=== PATIENT | female | born 1960 | race Caucasian/White ===

== ENCOUNTER 2016-09-23 00:56 | Observation (INO) | payer MEDICARE, MEDICAID ==
[2016-09-23] VITALS (11 sets, daily range): BP systolic 105–144; BP diastolic 33–72; PULSE 74–88; TEMP 97.6–97.9
[~2016-09-23] VITALS: Ht 157.5 cm; Wt 94.8 kg
[~2016-09-23 00:56] MED LIST: AMBIEN 10MG10 MG PO; AMITRIPTYLINE H10 M1 PO; AMOXICILLIN 8751 TAB PO; ATIVAN 0.50.5 MG/TAB PO; CYMBALTA 60MG60 MG PO; EFFEXOR-XR150 MG PO; ESTRACE2 MG PO; HYZAAR 25 MG-101 TAB PO; LEVOTHYROXINE0.05 M1 PO; LORTAB 5/500 501 TAB PO; LYRICA100 MG PO; MULTI VITAMINS1 TAB PO; NEURONTIN600 MG/TAB PO; NEXIUM40 MG PO; NORCO 325 MG-51 TAB PO; PROTONIX40 MG/Pack PO; SYNTHROID0.075 MG/T PO; TRAMADOL50 MG PO; VALIUM 5MG T5 MG/TAB PO
[2016-09-23] MEDS ORDERED: LYRICA 150MG C150 MG PO (01:32)
[2016-09-23] MEDS ORDERED: NUCYNTA50 MG PO (01:32)
[2016-09-23] MEDS ORDERED: CYMBALTA 30MG30 MG PO (01:33)
[2016-09-23] MEDS ORDERED: CYMBALTA 60MG60 MG PO (01:33)
[2016-09-23] MEDS ORDERED: PROTONIX 40MG T40 MG PO (01:34)
[2016-09-23] MEDS ORDERED: FLEXERIL 1010 MG/TAB PO (01:34)
[2016-09-23 01:40] LABS: BASO # 0.1 (0.0-0.2); BASO % 0.4 % (0.0-2.0); EOS # 0.2 (0.0-0.7); EOS % 1.2 % (0-4.0); GRAN # 9.4 (1.4-6.5); GRAN % 69.3 % (42.2-75.2); HEMOGLOBIN 12.2 g/dl (12.5-16.0); LYMPH % 21.8 % (20.0-51.0); MEAN CELL VOLUME 85 fl (80.0-100.0); MEAN CORPUSCULAR HEMOGLOBIN 28 pg (27.0-31.0); MEAN CORPUSCULAR HGB CONC 33 g/dl (33.0-37.0); MEAN PLATELET VOLUME 10.6 fl (7.4-10.4); MONO # 0.9 (0.1-0.6); MONO % 6.9 % (1.7-9.3); PLATELET COUNT 295 K/mm3 (130-400); RED BLOOD COUNT 4.32 M/mm3 (4.10-5.30); REDCELL DISTRIBUTION WIDTH-CV 14.1 % (11.5-14.5); WHITE BLOOD COUNT 13.6 K/mm3 (4.8-10.8)
[2016-09-23 01:59] LABS: HEMATOCRIT 36.5 % (37.0-47.0)
[2016-09-23 02:04] LABS: PH 8 (5-8); SQUAMOUS EPITHELIAL 0-2 /hpf; URINE APPEARANCE Hazy; URINE BACTERIA None Seen /hpf; URINE BILIRUBIN Negative (NEGATIVE); URINE BLOOD Negative (NEGATIVE); URINE COLOR Yellow; URINE GLUCOSE Negative (NEGATIVE); URINE KETONE Negative (NEGATIVE); URINE RBC 0-2 /hpf
[2016-09-23 02:22] LABS: ADJUSTED CALCIUM 9.5 mg/dL (8.4-10.2); ALBUMIN 3.6 gm/dL (3.5-5.0); BILIRUBIN,TOTAL 0.7 mg/dL (0.0-1.0); C-REACTIVE PROTEIN 3.4 mg/dL (0.0-0.9); CALCIUM 9.2 mg/dL (8.4-10.2); CREATININE, serum 0.7 mg/dL (0.52-1.25); POTASSIUM 4.2 mmol/L (3.4-5.0); TOTAL PROTEIN 6.6 gm/dL (6.4-8.2)
[2016-09-23] MEDS ORDERED: BIOTIN10000 MC1 PO (04:10)
[2016-09-24 01:37] VITALS: BP 117/62; PULSE 82; TEMP 98.2
[2016-09-24 06:26] VITALS: BP 130/67; PULSE 92; TEMP 98.3
[2016-09-24] MEDS ORDERED: NORCO 325 MG-7.1 TAB PO (07:15)
== END 2016-09-24 11:20 | disposition home or self-care (01) ==
LOC: COL.ER 00:56 → SURG 03:12 → SDCO 03:12 → SURG 09:00
PROVIDERS: Emergency Medicine
DX: K80.10 Calculus of gallbladder with chronic cholecystitis without obstruction (principal); I10 Essential (primary) hypertension; K58.9 Irritable bowel syndrome, unspecified; F31.9 Bipolar disorder, unspecified; F41.9 Anxiety disorder, unspecified; K27.9 Peptic ulcer, site unspecified, unspecified as acute or chronic, without hemorrhage or perforation; K21.9 Gastro-esophageal reflux disease without esophagitis; E66.9 Obesity, unspecified; Z98.84 Bariatric surgery status; M79.7 Fibromyalgia; E03.9 Hypothyroidism, unspecified; G62.9 Polyneuropathy, unspecified
CPT/HCPCS: G0378; J0690; J1100; J1170; J1885; J1956; J2405; J2704; J2710; J2765; J3010; J7030; J7120; Q9967

== ENCOUNTER 2016-09-28 10:27 | Inpatient (IN) | payer MEDICARE, MEDICAID ==
[~2016-09-28] VITALS: Ht 157.5 cm; Wt 93.7 kg
[~2016-09-28 10:27] MED LIST changes: +BIOTIN10000 MC1 PO; +CYMBALTA 30MG30 MG PO; +FLEXERIL 1010 MG/TAB PO; +LYRICA 150MG C150 MG PO; +NORCO 325 MG-7.1 TAB PO; +NUCYNTA50 MG PO; +PROTONIX 40MG T40 MG PO
[2016-09-28 11:04] LABS: BASO # 0.1 (0.0-0.2); BASO % 0.5 % (0.0-2.0); EOS # 0.1 (0.0-0.7); EOS % 1.4 % (0-4.0); GRAN # 7.3 (1.4-6.5); GRAN % 72.1 % (42.2-75.2); HEMATOCRIT 41.3 % (37.0-47.0); HEMOGLOBIN 14.1 g/dl (12.5-16.0); LYMPH # 1.9 (1.2-3.4); LYMPH % 18.4 % (20.0-51.0); MEAN CELL VOLUME 83 fl (80.0-100.0); MEAN CORPUSCULAR HEMOGLOBIN 28 pg (27.0-31.0); MEAN CORPUSCULAR HGB CONC 34 g/dl (33.0-37.0); MEAN PLATELET VOLUME 10.6 fl (7.4-10.4); MONO # 0.7 (0.1-0.6); MONO % 7.1 % (1.7-9.3); PLATELET COUNT 364 K/mm3 (130-400); RED BLOOD COUNT 4.97 M/mm3 (4.10-5.30); REDCELL DISTRIBUTION WIDTH-CV 14.9 % (11.5-14.5); WHITE BLOOD COUNT 10.1 K/mm3 (4.8-10.8)
[2016-09-28 11:19] LABS: ADJUSTED CALCIUM 9.7 mg/dL (8.4-10.2); ALANINE AMINOTRANSFERASE 139 U/L (9-52); ALBUMIN 4.1 gm/dL (3.5-5.0); ALKALINE PHOSPHATASE 232 U/L (50-136); ANION GAP 15 mmol/L (7-16); BILIRUBIN,TOTAL 6.6 mg/dL (0.0-1.0); BLOOD UREA NITROGEN 11 mg/dL (7-17); C-REACTIVE PROTEIN 6.9 mg/dL (0.0-0.9); CALCIUM 9.8 mg/dL (8.4-10.2); CARBON DIOXIDE 27 mmol/L (22-30); CHLORIDE 96 mmol/L (98-107); CREATININE, serum 0.59 mg/dL (0.52-1.25); GLUCOSE 118 mg/dL (74-106); POTASSIUM 3.6 mmol/L (3.4-5.0); SODIUM 138 mmol/L (137-145); TOTAL PROTEIN 7.7 gm/dL (6.4-8.2)
[2016-09-28 11:29] LABS: TROPONIN-I < 0.012 ng/mL (0.000-0.034)
[2016-09-28 11:49] LABS: LIPASE 2344 U/L (23-300)
[2016-09-28 12:19] LABS: PH 6 (5-8); SQUAMOUS EPITHELIAL 0-2 /hpf; URINE APPEARANCE Clear; URINE BACTERIA None Seen /hpf; URINE BILIRUBIN Positive (NEGATIVE); URINE BLOOD Negative (NEGATIVE); URINE COLOR Amber; URINE GLUCOSE Negative (NEGATIVE); URINE KETONE Negative (NEGATIVE); URINE UROBILINOGEN >=4.0 mg/dL (NEGATIVE); URINE WBC 0-2 /hpf
[2016-09-28 13:17] VITALS: BP 143/72; PULSE 74; TEMP 97.6
[2016-09-28 17:21] VITALS: BP 108/56; PULSE 90; TEMP 98
[2016-09-28 21:56] VITALS: BP 111/57; PULSE 83; TEMP 97.3
[2016-09-29 04:30] VITALS: BP 102/60; PULSE 77; TEMP 97.6
[2016-09-29 07:03] LABS: HEMATOCRIT 34.2 % (37.0-47.0); HEMOGLOBIN 11.3 g/dl (12.5-16.0); MEAN CELL VOLUME 86 fl (80.0-100.0); MEAN CORPUSCULAR HEMOGLOBIN 28 pg (27.0-31.0); MEAN CORPUSCULAR HGB CONC 33 g/dl (33.0-37.0); PLATELET COUNT 292 K/mm3 (130-400); RED BLOOD COUNT 3.99 M/mm3 (4.10-5.30); REDCELL DISTRIBUTION WIDTH-CV 15.3 % (11.5-14.5); WHITE BLOOD COUNT 8.4 K/mm3 (4.8-10.8)
[2016-09-29 07:30] LABS: BILIRUBIN,TOTAL 5.1 mg/dL (0.0-1.0); CALCIUM 8.2 mg/dL (8.4-10.2); CREATININE, serum 0.62 mg/dL (0.52-1.25); POTASSIUM 3.5 mmol/L (3.4-5.0); TOTAL PROTEIN 5.9 gm/dL (6.4-8.2)
[2016-09-29 09:21] VITALS: BP 107/49; PULSE 76; TEMP 97.5
[2016-09-29 14:01] VITALS: BP 106/47; PULSE 76; TEMP 97.7
[2016-09-29 17:29] VITALS: BP 140/70; PULSE 79; TEMP 97.7
[2016-09-29 22:10] VITALS: BP 139/63; PULSE 71; TEMP 98.2
[2016-09-30 05:20] VITALS: BP 109/49; PULSE 74; TEMP 97.7
[2016-09-30 10:05] VITALS: BP 132/57; PULSE 72
[2016-09-30 17:28] VITALS: BP 128/62; PULSE 71; TEMP 97.8
[2016-09-30 21:32] VITALS: BP 147/73; PULSE 74; TEMP 97.3
[2016-10-01 01:04] VITALS: BP 137/61; PULSE 74; TEMP 97.5
[2016-10-01 05:47] VITALS: BP 147/57; PULSE 73; TEMP 97.1
[2016-10-01 07:38] LABS: ADJUSTED CALCIUM 8.7 mg/dL (8.4-10.2); ALBUMIN 2.9 gm/dL (3.5-5.0); BILIRUBIN,TOTAL 1.2 mg/dL (0.0-1.0); CALCIUM 7.8 mg/dL (8.4-10.2); CREATININE, serum 0.56 mg/dL (0.52-1.25); POTASSIUM 3.6 mmol/L (3.4-5.0); TOTAL PROTEIN 5.6 gm/dL (6.4-8.2)
[2016-10-01 09:24] VITALS: BP 145/72; PULSE 72; TEMP 97.8
== END 2016-10-01 10:45 | disposition home or self-care (01) | DRG 444 ==
LOC: COL.ER 10:27 → SURG 12:37
PROVIDERS: Emergency Medicine; Internal Medicine Gastroenterology; Surgery
PROC: 0FC98ZZ Extirpation of Matter from Common Bile Duct, Via Natural or Artificial Opening Endoscopic (ICD-10-PCS; principal; 2016-09-30 12:30)
DX: K80.50 Calculus of bile duct without cholangitis or cholecystitis without obstruction (principal); K85.10 Biliary acute pancreatitis without necrosis or infection; Z98.84 Bariatric surgery status; M79.7 Fibromyalgia; G62.9 Polyneuropathy, unspecified; F31.9 Bipolar disorder, unspecified
CPT/HCPCS: C1769; J1170; J1200; J1956; J2405; J2704; J7030; J7120; Q9967

== ENCOUNTER 2017-06-10 19:59 | Emergency (ER) | payer MEDICARE, MEDICAID ==
[~2017-06-10] VITALS: Ht 157.5 cm; Wt 97.7 kg
[2017-06-10 20:04] VITALS: TEMP 98.1
[2017-06-10 20:42] LABS: HEMATOCRIT 37.9 % (37.0-47.0); HEMOGLOBIN 12.6 g/dl (12.5-16.0); MEAN CELL VOLUME 84 fl (80.0-100.0); MEAN CORPUSCULAR HEMOGLOBIN 28 pg (27.0-31.0); MEAN CORPUSCULAR HGB CONC 33 g/dl (33.0-37.0); MEAN PLATELET VOLUME 9.8 fl (7.4-10.4); PLATELET COUNT 367 K/mm3 (130-400); RED BLOOD COUNT 4.53 M/mm3 (4.10-5.30); REDCELL DISTRIBUTION WIDTH-CV 14.9 % (11.5-14.5)
[2017-06-10 21:03] LABS: BILIRUBIN,TOTAL 0.8 mg/dL (0.0-1.0); CALCIUM 9.7 mg/dL (8.4-10.2); CREATININE, serum 2.1 mg/dL (0.52-1.25); POTASSIUM 3.6 mmol/L (3.4-5.0); TOTAL PROTEIN 7.5 gm/dL (6.4-8.2)
[2017-06-10 21:04] LABS: BAND 22 % (0-10); LYMPHOCYTE 5 % (20.0-51.0); NEUTROPHILS 70 % (42.0-75.2)
[2017-06-10 21:05] LABS: PLATELET ESTIMATE NORMAL (NORMAL)
[2017-06-10 21:41] LABS: C-REACTIVE PROTEIN 42.1 mg/dL (0.0-0.9)
[2017-06-10 22:37] LABS: COLLECTION METHOD CLEAN CATCH
[2017-06-10 22:46] LABS: AMORPHOUS CRYSTAL Present /uL; MUCOUS Present /lpf; PH 5 (5-8); URINE APPEARANCE Cloudy; URINE BACTERIA Occasional /hpf; URINE BILIRUBIN Negative (NEGATIVE); URINE BLOOD Negative (NEGATIVE); URINE COLOR Amber; URINE GLUCOSE Negative (NEGATIVE); URINE KETONE Trace (NEGATIVE); URINE LEUKOCYTE ESTERASE Trace (NEGATIVE); URINE NITRATE Negative (NEGATIVE); URINE PROTEIN(semi-quant) 2+ (NEGATIVE); URINE UROBILINOGEN Negative (NEGATIVE)
[2017-06-10 23:35] VITALS: BP 111/59; PULSE 95
== END 2017-06-10 23:35 | disposition short-term general hospital (02) ==
LOC: COL.ER 19:59
PROVIDERS: Emergency Medicine
DX: A41.9 Sepsis, unspecified organism (principal); R65.21 Severe sepsis with septic shock; N17.9 Acute kidney failure, unspecified; N39.0 Urinary tract infection, site not specified; E87.2 Acidosis; R79.89 Other specified abnormal findings of blood chemistry; I10 Essential (primary) hypertension; F31.9 Bipolar disorder, unspecified; K21.9 Gastro-esophageal reflux disease without esophagitis; E66.9 Obesity, unspecified; Z87.19 Personal history of other diseases of the digestive system; Z87.39 Personal history of other diseases of the musculoskeletal system and connective tissue; Z68.39 Body mass index [BMI] 39.0-39.9, adult; Z90.710 Acquired absence of both cervix and uterus; Z90.49 Acquired absence of other specified parts of digestive tract; Z98.84 Bariatric surgery status; Z98.890 Other specified postprocedural states
CPT/HCPCS: J1956; J2405; J2543; J3010; J3370; J7030; J7040; J7060

== ENCOUNTER 2017-06-23 19:09 | Emergency (ER) | payer MEDICARE, MEDICAID ==
[~2017-06-23] VITALS: Ht 157.5 cm; Wt 104.5 kg
[2017-06-23 19:20] VITALS: BP 143/65; PULSE 85; TEMP 97.5
== END 2017-06-23 19:55 | disposition left against medical advice (07) ==
LOC: COL.ER 19:09
DX: N18.6 End stage renal disease (principal)

== ENCOUNTER 2017-07-01 19:15 | Emergency (ER) | payer MEDICARE, MEDICAID ==
[~2017-07-01] VITALS: Ht 157.5 cm; Wt 97.7 kg
[2017-07-01 19:18] VITALS: TEMP 97.2
[2017-07-01] MEDS ORDERED: PLAVIX 75MG TAB75 MG PO (19:54)
[2017-07-01] MEDS ORDERED: TOPROL XL 25MG25 MG PO (19:54)
[2017-07-01] MEDS ORDERED: LASIX 20MG TABL20 MG PO (19:55)
[2017-07-01] MEDS ORDERED: ASPIRIN 81M81 MG/TA2 PO (19:55)
[2017-07-01] MEDS ORDERED: ATROVENT I0.2 MG/1 M IH (19:55)
[2017-07-01] MEDS ORDERED: AMOXICILLIN 8751 TAB PO (21:14)
[2017-07-01 22:01] VITALS: BP 144/85; PULSE 83
== END 2017-07-01 22:30 | disposition home or self-care (01) ==
LOC: COL.ER 19:15
DX: R04.0 Epistaxis (principal); Z79.82 Long term (current) use of aspirin; Z79.02 Long term (current) use of antithrombotics/antiplatelets; Z88.2 Allergy status to sulfonamides; M79.7 Fibromyalgia; F31.9 Bipolar disorder, unspecified; K21.9 Gastro-esophageal reflux disease without esophagitis

== ENCOUNTER 2017-07-14 08:14 | Day surgery (SDC) | payer MEDICARE, MEDICAID ==
[2017-07-14] VITALS (13 sets, daily range): BP systolic 106–152; BP diastolic 54–80; PULSE 79–96; TEMP 98.1–98.3
[~2017-07-14] VITALS: Ht 157.6 cm; Wt 100.0 kg
[~2017-07-14 08:14] MED LIST changes: +ASPIRIN 81M81 MG/TA2 PO; +ATROVENT I0.2 MG/1 M IH; +LASIX 20MG TABL20 MG PO; +PLAVIX 75MG TAB75 MG PO; +TOPROL XL 25MG25 MG PO
[2017-07-14 08:52] LABS: HEMATOCRIT 25.2 % (37.0-47.0); HEMOGLOBIN 8.4 g/dl (12.5-16.0); MEAN CELL VOLUME 85 fl (80.0-100.0); MEAN CORPUSCULAR HEMOGLOBIN 28 pg (27.0-31.0); MEAN CORPUSCULAR HGB CONC 33 g/dl (33.0-37.0); MEAN PLATELET VOLUME 10.5 fl (7.4-10.4); PLATELET COUNT 382 K/mm3 (130-400); RED BLOOD COUNT 2.96 M/mm3 (4.10-5.30); REDCELL DISTRIBUTION WIDTH-CV 15.2 % (11.5-14.5)
[2017-07-14 08:55] LABS: INR 1.1 (0.8-3.0); PROTHROMBIN TIME 12.6 SECONDS (9.7-12.8)
[2017-07-14] MEDS ORDERED: FERROUSAL325 MG PO (08:56)
[2017-07-14] MEDS ORDERED: NUCYNTA50 MG PO (09:01)
[2017-07-14] MEDS ORDERED: B-12 100 MCG PO (09:04)
[2017-07-14 09:25] LABS: CREATININE, serum 1.3 mg/dL (0.52-1.25); POTASSIUM 3.6 mmol/L (3.4-5.0)
== END 2017-07-14 16:20 | disposition home or self-care (01) ==
LOC: COL.CAR 08:14
PROVIDERS: Internal Medicine Cardiovascular Disease
DX: I42.9 Cardiomyopathy, unspecified (principal); I21.4 Non-ST elevation (NSTEMI) myocardial infarction; R00.2 Palpitations; I12.9 Hypertensive chronic kidney disease with stage 1 through stage 4 chronic kidney disease, or unspecified chronic kidney disease; N18.9 Chronic kidney disease, unspecified; Z87.891 Personal history of nicotine dependence; Z98.84 Bariatric surgery status; E66.01 Morbid (severe) obesity due to excess calories; Z68.39 Body mass index [BMI] 39.0-39.9, adult; K21.9 Gastro-esophageal reflux disease without esophagitis; Z79.82 Long term (current) use of aspirin; Z88.2 Allergy status to sulfonamides; Z80.9 Family history of malignant neoplasm, unspecified; F31.9 Bipolar disorder, unspecified; M79.7 Fibromyalgia; E03.9 Hypothyroidism, unspecified; F41.9 Anxiety disorder, unspecified
CPT/HCPCS: J1644; J2250; J3010; Q9967

== ENCOUNTER 2018-01-01 14:01 | Emergency (ER) | payer MEDICARE, MEDICAID ==
[~2018-01-01] VITALS: Ht 157.5 cm; Wt 90.9 kg
[~2018-01-01 14:01] MED LIST changes: +B-12 100 MCG PO; +FERROUSAL325 MG PO
[2018-01-01 14:03] VITALS: TEMP 97.6
[2018-01-01] MEDS ORDERED: KLOR-CON M1010 MEQ PO (14:28)
[2018-01-01] MEDS ORDERED: LOSARTAN/HCT TAB 100 (14:29)
[2018-01-01 14:30] LABS: BASO # 0.1 (0.0-0.2); BASO % 0.5 % (0.0-2.0); EOS # 0.2 (0.0-0.7); EOS % 1.9 % (0-4.0); GRAN # 7.5 (1.4-6.5); GRAN % 62.9 % (42.2-75.2); HEMOGLOBIN 11.8 g/dl (12.5-16.0); LYMPH # 3.2 (1.2-3.4); LYMPH % 27.2 % (20.0-51.0); MEAN CELL VOLUME 84 fl (80.0-100.0); MEAN CORPUSCULAR HEMOGLOBIN 28 pg (27.0-31.0); MEAN CORPUSCULAR HGB CONC 33 g/dl (33.0-37.0); MEAN PLATELET VOLUME 10.3 fl (7.4-10.4); MONO # 0.8 (0.1-0.6); PLATELET COUNT 379 K/mm3 (130-400); RED BLOOD COUNT 4.23 M/mm3 (4.10-5.30); REDCELL DISTRIBUTION WIDTH-CV 15.3 % (11.5-14.5)
[2018-01-01 14:33] LABS: PROTHROMBIN TIME 11.1 SECONDS (9.7-12.8)
[2018-01-01 14:36] LABS: PARTIAL THROMBOPLASTIN TIME 34.8 SECONDS (26.0-37.0)
[2018-01-01 14:40] LABS: HEMATOCRIT 35.4 % (37.0-47.0)
[2018-01-01 14:44] LABS: ALANINE AMINOTRANSFERASE 20 U/L (9-52); ALBUMIN 4.2 gm/dL (3.5-5.0); ALKALINE PHOSPHATASE 77 U/L (50-136); ANION GAP 14 mmol/L (7-16); AST,SGOT 26 U/L (15-37); BILIRUBIN,TOTAL 0.3 mg/dL (0.0-1.0); BLOOD UREA NITROGEN 17 mg/dL (7-17); CARBON DIOXIDE 28 mmol/L (22-30); CHLORIDE 94 mmol/L (98-107); CREATININE, serum 1.06 mg/dL (0.52-1.25); GLUCOSE 91 mg/dL (74-106); POTASSIUM 3.4 mmol/L (3.4-5.0); SODIUM 136 mmol/L (137-145); TOTAL PROTEIN 7.6 gm/dL (6.4-8.2)
[2018-01-01 14:55] LABS: TROPONIN-I < 0.012 ng/mL (0.000-0.034)
[2018-01-01 17:00] LABS: TROPONIN-I < 0.012 ng/mL (0.000-0.034)
[2018-01-01 17:28] VITALS: PULSE 91
[2018-01-01 17:49] VITALS: BP 126/75
== END 2018-01-01 17:51 | disposition home or self-care (01) ==
LOC: COL.ER 14:01
PROVIDERS: Family Medicine
DX: R07.89 Other chest pain (principal); R06.00 Dyspnea, unspecified; K21.9 Gastro-esophageal reflux disease without esophagitis

== ENCOUNTER 2018-01-30 19:34 | Emergency (ER) | payer MEDICARE, MEDICAID ==
[~2018-01-30] VITALS: Ht 157.5 cm; Wt 102.3 kg
[~2018-01-30 19:34] MED LIST changes: +KLOR-CON M1010 MEQ PO; +LOSARTAN/HCT TAB 100
[2018-01-30 19:41] VITALS: BP 149/66; TEMP 97.1
[2018-01-30] MEDS ORDERED: DOXYCYCLINE 10100 MG PO (20:24)
[2018-01-30 20:37] VITALS: PULSE 87
== END 2018-01-30 20:38 | disposition home or self-care (01) ==
LOC: COL.ER 19:34
DX: J32.9 Chronic sinusitis, unspecified (principal); M79.7 Fibromyalgia; F41.9 Anxiety disorder, unspecified; F31.9 Bipolar disorder, unspecified; Z90.710 Acquired absence of both cervix and uterus; Z90.49 Acquired absence of other specified parts of digestive tract; Z98.890 Other specified postprocedural states; Z88.2 Allergy status to sulfonamides; Z86.19 Personal history of other infectious and parasitic diseases; Z79.52 Long term (current) use of systemic steroids

== ENCOUNTER 2018-07-20 17:30 | Emergency (ER) | payer MEDICARE, MEDICAID ==
[~2018-07-20] VITALS: Ht 157.5 cm; Wt 102.3 kg
[~2018-07-20 17:30] MED LIST changes: +DOXYCYCLINE 10100 MG PO
[2018-07-20 17:39] VITALS: TEMP 98.4
[2018-07-20] MEDS ORDERED: ZEBETA 5MG5 MG PO (18:31)
[2018-07-20] MEDS ORDERED: HYZAAR 25 MG-101 TAB PO (18:34)
[2018-07-20] MEDS ORDERED: NORCO 325 MG-51 TAB PO (18:36)
[2018-07-20 19:35] LABS: ALBUMIN 3.9 gm/dL (3.5-5.0); BILIRUBIN,TOTAL 0.3 mg/dL (0.0-1.0); CALCIUM 9.3 mg/dL (8.4-10.2); CREATININE, serum 0.87 mg/dL (0.52-1.25); TOTAL PROTEIN 7.3 gm/dL (6.4-8.2)
[2018-07-20 20:27] LABS: BASO # 0.1 (0.0-0.2); BASO % 0.6 % (0.0-2.0); EOS # 0.2 (0.0-0.7); EOS % 2.1 % (0-4.0); GRAN # 6.1 (1.4-6.5); GRAN % 63.2 % (42.2-75.2); HEMOGLOBIN 11.6 g/dl (12.5-16.0); LYMPH # 2.5 (1.2-3.4); LYMPH % 25.7 % (20.0-51.0); MEAN CELL VOLUME 83 fl (80.0-100.0); MEAN CORPUSCULAR HEMOGLOBIN 27 pg (27.0-31.0); MEAN CORPUSCULAR HGB CONC 33 g/dl (33.0-37.0); MEAN PLATELET VOLUME 10.3 fl (7.4-10.4); MONO # 0.8 (0.1-0.6); MONO % 7.9 % (1.7-9.3); PLATELET COUNT 326 K/mm3 (130-400); RED BLOOD COUNT 4.27 M/mm3 (4.10-5.30)
[2018-07-20 20:31] LABS: HEMATOCRIT 35.6 % (37.0-47.0)
[2018-07-20 21:14] VITALS: BP 120/66; PULSE 80
== END 2018-07-20 21:15 | disposition home or self-care (01) ==
LOC: COL.ER 17:30
PROVIDERS: Family Medicine
DX: H83.02 Labyrinthitis, left ear (principal); W19.XXXA Unspecified fall, initial encounter

== ENCOUNTER 2018-09-05 17:23 | Emergency (ER) | payer MEDICARE, MEDICAID ==
[~2018-09-05] VITALS: Ht 157.5 cm; Wt 90.9 kg
[~2018-09-05 17:23] MED LIST changes: +ZEBETA 5MG5 MG PO
[2018-09-05 17:38] VITALS: TEMP 97.8
[2018-09-05 17:56] LABS: COLLECTION METHOD CLEAN CATCH
[2018-09-05 18:05] LABS: MUCOUS Present /lpf; PH 5 (5-8); SQUAMOUS EPITHELIAL 0-2 /hpf; URINE APPEARANCE Clear; URINE BACTERIA Rare /hpf; URINE BILIRUBIN Negative (NEGATIVE); URINE BLOOD Negative (NEGATIVE); URINE COLOR Yellow; URINE GLUCOSE Negative (NEGATIVE); URINE KETONE Negative (NEGATIVE); URINE LEUKOCYTE ESTERASE Negative (NEGATIVE); URINE NITRATE Negative (NEGATIVE); URINE PROTEIN(semi-quant) Negative (NEGATIVE); URINE RBC 0-2 /hpf; URINE UROBILINOGEN Negative (NEGATIVE)
[2018-09-05 18:47] LABS: BASO # 0.1 (0.0-0.2); BASO % 0.5 % (0.0-2.0); EOS # 0.3 (0.0-0.7); EOS % 2.3 % (0-4.0); GRAN # 8.4 (1.4-6.5); GRAN % 68.4 % (42.2-75.2); HEMOGLOBIN 11.4 g/dl (12.5-16.0); LYMPH # 2.5 (1.2-3.4); LYMPH % 20.6 % (20.0-51.0); MEAN CELL VOLUME 84 fl (80.0-100.0); MEAN CORPUSCULAR HEMOGLOBIN 27 pg (27.0-31.0); MEAN CORPUSCULAR HGB CONC 33 g/dl (33.0-37.0); MEAN PLATELET VOLUME 10.2 fl (7.4-10.4); MONO # 0.9 (0.1-0.6); MONO % 7.6 % (1.7-9.3); PLATELET COUNT 327 K/mm3 (130-400); RED BLOOD COUNT 4.18 M/mm3 (4.10-5.30); REDCELL DISTRIBUTION WIDTH-CV 15.1 % (11.5-14.5)
[2018-09-05 18:54] LABS: HEMATOCRIT 34.9 % (37.0-47.0)
[2018-09-05 19:01] LABS: ALANINE AMINOTRANSFERASE < 6 U/L (9-52); ALBUMIN 3.9 gm/dL (3.5-5.0); ALKALINE PHOSPHATASE 77 U/L (50-136); ANION GAP 12 mmol/L (7-16); AST,SGOT 21 U/L (15-37); BILIRUBIN,TOTAL 0.3 mg/dL (0.0-1.0); BLOOD UREA NITROGEN 15 mg/dL (7-17); CARBON DIOXIDE 29 mmol/L (22-30); CHLORIDE 97 mmol/L (98-107); CREATININE, serum 0.94 (0.52-1.25); GLUCOSE 109 mg/dL (74-106); LIPASE 44 U/L (23-300); POTASSIUM 3.5 mmol/L (3.4-5.0); SODIUM 138 mmol/L (137-145); TOTAL PROTEIN 7.1 gm/dL (6.4-8.2)
[2018-09-05 22:40] VITALS: BP 119/60; PULSE 83
== END 2018-09-05 22:40 | disposition home or self-care (01) ==
LOC: COL.ER 17:23
PROVIDERS: Emergency Medicine
DX: R10.9 Unspecified abdominal pain (principal); I10 Essential (primary) hypertension; E03.9 Hypothyroidism, unspecified; M79.7 Fibromyalgia; Z90.710 Acquired absence of both cervix and uterus; Z90.49 Acquired absence of other specified parts of digestive tract
CPT/HCPCS: J1170; J2405; J7030; Q9967

== ENCOUNTER 2019-05-12 13:49 | Emergency (ER) | payer MEDICARE, MEDICAID ==
[~2019-05-12] VITALS: Ht 157.5 cm; Wt 106.8 kg
[2019-05-12 14:26] VITALS: TEMP 97.2
[2019-05-12 16:06] LABS: COLLECTION METHOD CLEAN CATCH
[2019-05-12 16:13] LABS: PH 7 (5-8); SQUAMOUS EPITHELIAL 0-2 /hpf; URINE APPEARANCE Clear; URINE BACTERIA Rare /hpf; URINE BILIRUBIN Negative (NEGATIVE); URINE BLOOD Negative (NEGATIVE); URINE COLOR Yellow; URINE GLUCOSE Negative (NEGATIVE); URINE KETONE Negative (NEGATIVE); URINE LEUKOCYTE ESTERASE Negative (NEGATIVE); URINE NITRATE Negative (NEGATIVE); URINE PROTEIN(semi-quant) Negative (NEGATIVE); URINE RBC 0-2 /hpf; URINE UROBILINOGEN Negative (NEGATIVE)
[2019-05-12 16:23] LABS: HEMATOCRIT 39.2 % (37.0-47.0); HEMOGLOBIN 12.8 g/dl (12.5-16.0); MEAN CELL VOLUME 86 fl (80.0-100.0); MEAN CORPUSCULAR HEMOGLOBIN 28 pg (27.0-31.0); MEAN CORPUSCULAR HGB CONC 33 g/dl (33.0-37.0); MEAN PLATELET VOLUME 10.5 fl (7.4-10.4); PLATELET COUNT 328 K/mm3 (130-400); RED BLOOD COUNT 4.56 M/mm3 (4.10-5.30); REDCELL DISTRIBUTION WIDTH-CV 14.7 % (11.5-14.5)
[2019-05-12 16:27] LABS: INR 0.9 (0.8-3.0); PROTHROMBIN TIME 9.9 SECONDS (9.7-12.8)
[2019-05-12 16:34] LABS: ALANINE AMINOTRANSFERASE 18 U/L (9-52); ALBUMIN 4.1 gm/dL (3.5-5.0); ALKALINE PHOSPHATASE 85 U/L (50-136); ANION GAP 12 mmol/L (7-16); AST,SGOT 23 U/L (15-37); BILIRUBIN,TOTAL 0.3 mg/dL (0.0-1.0); BLOOD UREA NITROGEN 19 mg/dL (7-17); CALCIUM 9.1 mg/dL (8.4-10.2); CARBON DIOXIDE 30 mmol/L (22-30); CHLORIDE 95 mmol/L (98-107); CREATININE, serum 0.82 (0.52-1.25); GLUCOSE 94 mg/dL (74-106); POTASSIUM 3.9 mmol/L (3.4-5.0); SODIUM 136 mmol/L (137-145); TOTAL PROTEIN 7.1 gm/dL (6.4-8.2)
[2019-05-12 16:46] LABS: TROPONIN-I < 0.012 ng/mL (0.000-0.035)
[2019-05-12 17:06] LABS: BAND 3 % (0-10); EOSINOPHIL 2 % (0-4); LYMPHOCYTE 17 % (20.0-51.0); NEUTROPHILS 76 % (42.0-75.2); PLATELET ESTIMATE NORMAL (NORMAL)
[2019-05-12 18:37] VITALS: BP 124/50; PULSE 97
== END 2019-05-12 18:40 | disposition home or self-care (01) ==
LOC: COL.ER 13:49
PROVIDERS: Family Medicine
DX: T78.3XXA Angioneurotic edema, initial encounter (principal); I10 Essential (primary) hypertension
CPT/HCPCS: J1200; J1940

== ENCOUNTER → 2019-06-23 | Outpatient (CLI) | payer MEDICARE, MEDICAID | LOC: COL.VAS 08:07 | DX: I42.0 Dilated cardiomyopathy (principal); I35.1 Nonrheumatic aortic (valve) insufficiency ==

== ENCOUNTER 2020-04-06 19:18 | Inpatient (IN) | payer MEDICARE, MEDICAID ==
[~2020-04-06] VITALS: Ht 157.5 cm; Wt 102.7 kg
[~2020-04-06 19:18] MED LIST changes: +ALDACTONE50 MG PO; +AMITRIPTYLINE H25 M1 PO; +ASPERCREME LIDO73 ML TP; +B-121000 MCG PO; +BUMEX 1MG TA1 MG/TA1 PO; +MELATIN 3 MG-11 TAB PO; -MULTI VITAMINS1 TAB PO; +NEURONTIN300 MG/CAP PO; +NUCYNTA ER100 MG PO; +ONE-A-DAY ESSE1 EACH PO; +SYNTHROID0.1 MG/TAB PO; +TOPAMAX 25MG25 M1 PO; +VOLTAREN GEL 1%1 TU TP; +ZANAFLEX CAPSULE4 MG PO
[2020-04-06 21:35] LABS: HEMATOCRIT 39.5 % (37.0-47.0); MEAN CELL VOLUME 84 fl (80.0-100.0); MEAN CORPUSCULAR HEMOGLOBIN 28 pg (27.0-31.0); MEAN CORPUSCULAR HGB CONC 33 g/dl (33.0-37.0); MEAN PLATELET VOLUME 10.2 fl (7.4-10.4); PLATELET COUNT 441 K/mm3 (130-400); RED BLOOD COUNT 4.68 M/mm3 (4.10-5.30); REDCELL DISTRIBUTION WIDTH-CV 14.7 % (11.5-14.5)
[2020-04-06 21:41] LABS: ALANINE AMINOTRANSFERASE 17 U/L (4-34); ALBUMIN 4.5 gm/dL (3.5-5.0); ALKALINE PHOSPHATASE 79 U/L (50-136); ANION GAP 13 mmol/L (7-16); AST,SGOT 28 U/L (15-37); BILIRUBIN,TOTAL 0.7 mg/dL (0.0-1.0); BLOOD UREA NITROGEN 22 mg/dL (7-17); C-REACTIVE PROTEIN 5.1 mg/dL (0.0-0.9); CALCIUM 9.5 mg/dL (8.4-10.2); CARBON DIOXIDE 27 mmol/L (22-30); CHLORIDE 93 mmol/L (98-107); CREATININE, serum 1.23 (0.52-1.25); GLUCOSE 117 mg/dL (74-106); POTASSIUM 4.5 mmol/L (3.4-5.0); SODIUM 134 mmol/L (137-145); TOTAL PROTEIN 7.8 gm/dL (6.4-8.2)
[2020-04-06 21:52] LABS: TROPONIN-I < 0.012 ng/mL (0.000-0.035)
[2020-04-06 21:53] LABS: COLLECTION METHOD CATHETER
[2020-04-06 22:18] LABS: BUDDING YEAST Present /hpf; HYALINE CAST >12 /lpf; MUCOUS Present /lpf; PH 5 (5-8); SQUAMOUS EPITHELIAL 20-50 /hpf; URINE APPEARANCE Cloudy; URINE BACTERIA Moderate /hpf; URINE BILIRUBIN Negative (NEGATIVE); URINE BLOOD Negative (NEGATIVE); URINE COLOR Amber; URINE GLUCOSE Negative (NEGATIVE); URINE KETONE Trace (NEGATIVE); URINE LEUKOCYTE ESTERASE Negative (NEGATIVE); URINE NITRATE Negative (NEGATIVE); URINE PROTEIN(semi-quant) 1+ (NEGATIVE); URINE RBC 20-50 /hpf
[2020-04-06 22:20] LABS: ANISOCYTOSIS 1+; BAND 8 % (0-10); EOSINOPHIL 1 % (0-4); LYMPHOCYTE 11 % (20.0-51.0); NEUTROPHILS 73 % (42.0-75.2); PLATELET ESTIMATE INCREASED (NORMAL)
[2020-04-06] MEDS ORDERED: AMBIEN 5MG TABLE5 MG PO (23:40)
[2020-04-07] MEDS ORDERED: CYMBALTA 30MG30 MG PO (04:04)
[2020-04-07] MEDS ORDERED: HYZAAR 25 MG-101 TAB (04:10)
[2020-04-07 04:35] VITALS: BP 128/65; PULSE 94; TEMP 97.8
--- NOTE | 2020-04-07 05:18 | NUR ---
Admitted to medical floor with sepsis-- most recent lactic down to 1.7,, Has Marc for some retention,inability to void in ER- good amount colt urine. Denies pain at this time. Received Vancomycin and Cefipime IV in ER- Understands to call for any assistance needed-
[2020-04-07 06:53] LABS: INR 1.1 (0.8-3.0); PROTHROMBIN TIME 12.6 SECONDS (9.7-12.8)
[2020-04-07 07:00] LABS: CALCIUM 8.8 mg/dL (8.4-10.2); CREATININE, serum 0.89 (0.52-1.25); POTASSIUM 4.1 mmol/L (3.4-5.0)
[2020-04-07 07:11] LABS: BASO # 0.1 (0.0-0.2); BASO % 0.4 % (0.0-2.0); EOS # 0.1 (0.0-0.7); EOS % 0.3 % (0-4.0); GRAN # 15.9 (1.4-6.5); GRAN % 80.8 % (42.2-75.2); HEMOGLOBIN 11.1 g/dl (12.5-16.0); LYMPH # 2.4 (1.2-3.4); LYMPH % 12.4 % (20.0-51.0); MEAN CELL VOLUME 85 fl (80.0-100.0); MEAN CORPUSCULAR HEMOGLOBIN 28 pg (27.0-31.0); MEAN CORPUSCULAR HGB CONC 32 g/dl (33.0-37.0); MEAN PLATELET VOLUME 10.2 fl (7.4-10.4); MONO # 1.1 (0.1-0.6); MONO % 5.7 % (1.7-9.3); PLATELET COUNT 389 K/mm3 (130-400); RED BLOOD COUNT 4.04 M/mm3 (4.10-5.30); REDCELL DISTRIBUTION WIDTH-CV 14.8 % (11.5-14.5)
[2020-04-07 07:15] LABS: HEMATOCRIT 34.3 % (37.0-47.0)
[2020-04-07 09:31] VITALS: BP 123/56; PULSE 92; TEMP 97.7
--- NOTE | 2020-04-07 09:40 | NUR ---
Patient resting in bed. Reports increased pain. I dicussed with her all morning medications, including oxycotin for pain. Pain to her Left foot, chronic neuropathy. Overall she reports feeling better. She does report feeling hot, using cool wash cloths, informed her we do not have fans for infection control reasons. She spoke to her daughter on the phone. Will continue to [facility].
[2020-04-07 10:53] VITALS: BP 125/67; PULSE 93; TEMP 97.7
--- NOTE | 2020-04-07 11:45 | NUR ---
Patient resting in bed. Tolerates garza removal. hospitalst rounded and plan of care reviewed.
--- NOTE | 2020-04-07 14:44 | NUR ---
[place] Patient reports that she has a DTR [place] .Patient reports that they do not talk often. Patient reports that she uses CPAP at home and has a walker and cane. Patient reports that her PCP is Dr. Jesse Dietz and RX elmer choi. Client indicated that she has transportation. Will continue to follow.
--- NOTE | 2020-04-07 15:10 | NUR ---
Patient sitting up in chair. Voiding without difficulty. denies pain
[2020-04-07 15:34] VITALS: BP 118/64; PULSE 99; TEMP 97.9
--- NOTE | 2020-04-07 17:44 | NUR ---
Patient continues to sit up in chair. Ready for dinner.
[2020-04-07 18:44] VITALS: BP 113/62; PULSE 98; TEMP 97.7
[2020-04-07 23:59] VITALS: BP 100/51; PULSE 96; TEMP 98
[2020-04-08 06:53] LABS: BASO % 0.3 % (0.0-2.0); EOS # 0.3 (0.0-0.7); EOS % 2.3 % (0-4.0); GRAN # 11.2 (1.4-6.5); HEMOGLOBIN 10.2 g/dl (12.5-16.0); LYMPH # 1.6 (1.2-3.4); LYMPH % 11.1 % (20.0-51.0); MEAN CELL VOLUME 88 fl (80.0-100.0); MEAN CORPUSCULAR HEMOGLOBIN 28 pg (27.0-31.0); MEAN CORPUSCULAR HGB CONC 32 g/dl (33.0-37.0); MEAN PLATELET VOLUME 9.7 fl (7.4-10.4); MONO % 6.9 % (1.7-9.3); PLATELET COUNT 298 K/mm3 (130-400); RED BLOOD COUNT 3.61 M/mm3 (4.10-5.30); REDCELL DISTRIBUTION WIDTH-CV 14.9 % (11.5-14.5)
[2020-04-08 06:56] LABS: HEMATOCRIT 31.8 % (37.0-47.0)
[2020-04-08 07:03] LABS: ALBUMIN 3.2 gm/dL (3.5-5.0); BILIRUBIN,TOTAL 0.6 mg/dL (0.0-1.0); CALCIUM 7.9 mg/dL (8.4-10.2); CREATININE, serum 0.86 (0.52-1.25); MAGNESIUM 1.8 mg/dL (1.6-2.3); POTASSIUM 4.3 mmol/L (3.4-5.0)
--- NOTE | 2020-04-08 08:14 | NUR ---
Patient sitting up in bed. enjoying her breakfast. Pain being well managed with Oxycontin. She is still hopful for possible discharge home today.
[2020-04-08 08:19] VITALS: BP 142/62; PULSE 102; TEMP 97
[2020-04-08] MEDS ORDERED: OMNICEF 300MG300 MG PO (08:50)
[2020-04-08] MEDS ORDERED: DIFLUCAN200 MG PO (08:50)
--- NOTE | 2020-04-08 11:37 | NUR ---
Patient ready for discharge. Her family taking her home. We reviewed all discharge education. Patient verbalized understanding in new prescriptions & changes in home medications. IV DC. She denies questions or concerns. Patient wheeled out with all belongings
== END 2020-04-08 11:43 | disposition home or self-care (01) | DRG 872 ==
LOC: COL.ER 19:18 → SURG 23:56
PROVIDERS: Nurse Practitioner Family; Physician Assistant; ADMIT Emergency Medicine
DX: A41.9 Sepsis, unspecified organism (principal); I42.9 Cardiomyopathy, unspecified; N17.9 Acute kidney failure, unspecified; Z68.41 Body mass index [BMI] 40.0-44.9, adult; B37.49 Other urogenital candidiasis; R65.20 Severe sepsis without septic shock; I10 Essential (primary) hypertension; E03.9 Hypothyroidism, unspecified; F31.9 Bipolar disorder, unspecified; M79.7 Fibromyalgia; E83.42 Hypomagnesemia; K58.9 Irritable bowel syndrome, unspecified; E66.01 Morbid (severe) obesity due to excess calories; Z20.828 Contact with and (suspected) exposure to other viral communicable diseases; K21.9 Gastro-esophageal reflux disease without esophagitis; Z88.2 Allergy status to sulfonamides
CPT/HCPCS: 99223-AI; 99232-AI; 99239; J0692; J1650; J3370; J3475; J7030; J7040; J7120

== ENCOUNTER → 2020-08-09 | Outpatient (CLI) | payer MEDICARE, MEDICAID ==
[~2020-08-09] MED LIST changes: +AMBIEN 5MG TABLE5 MG PO; +DIFLUCAN200 MG PO; +HYZAAR 25 MG-101 TAB; +LOVENOX150 MG/ML SQ; +OMNICEF 300MG300 MG PO
== END ==
LOC: MC.RAD 14:30
DX: Z12.31 Encounter for screening mammogram for malignant neoplasm of breast (principal); N64.89 Other specified disorders of breast

== ENCOUNTER → 2020-08-17 | Outpatient (CLI) | payer MEDICARE, MEDICAID | LOC: MC.RAD 13:00 | DX: N64.89 Other specified disorders of breast (principal); N63.12 Unspecified lump in the right breast, upper inner quadrant; R92.2 Inconclusive mammogram; R59.0 Localized enlarged lymph nodes ==

== ENCOUNTER 2020-08-18 23:16 | Emergency (ER) | payer MEDICARE, MEDICAID ==
[~2020-08-18] VITALS: Ht 157.5 cm; Wt 100.0 kg
[~2020-08-18 23:16] MED LIST changes: -LOVENOX150 MG/ML SQ
[2020-08-18 23:25] VITALS: TEMP 98.4
[2020-08-19 00:02] LABS: BASO # 0.1 (0.0-0.2); BASO % 0.5 % (0.0-2.0); EOS # 0.3 (0.0-0.7); GRAN # 6.9 (1.4-6.5); GRAN % 59.7 % (42.2-75.2); HEMOGLOBIN 11.5 g/dl (12.5-16.0); LYMPH # 3.4 (1.2-3.4); LYMPH % 29.3 % (20.0-51.0); MEAN CELL VOLUME 86 fl (80.0-100.0); MEAN CORPUSCULAR HEMOGLOBIN 27 pg (27.0-31.0); MEAN CORPUSCULAR HGB CONC 32 g/dl (33.0-37.0); MEAN PLATELET VOLUME 9.6 fl (7.4-10.4); MONO # 0.8 (0.1-0.6); PLATELET COUNT 400 K/mm3 (130-400); RED BLOOD COUNT 4.19 M/mm3 (4.10-5.30); REDCELL DISTRIBUTION WIDTH-CV 14.2 % (11.5-14.5)
[2020-08-19 00:04] LABS: HEMATOCRIT 36.2 % (37.0-47.0)
[2020-08-19 00:11] LABS: CALCIUM 8.8 mg/dL (8.4-10.2); CREATININE, serum 0.86 (0.52-1.25); POTASSIUM 3.9 mmol/L (3.4-5.0)
[2020-08-19 00:38] VITALS: BP 132/81; PULSE 84
[2020-08-19] MEDS ORDERED: LOVENOX150 MG/ML SQ (13:27)
== END 2020-08-19 00:32 | disposition home or self-care (01) ==
LOC: COL.ER 23:16
PROVIDERS: Emergency Medicine
DX: M79.605 Pain in left leg (principal); I10 Essential (primary) hypertension; E03.9 Hypothyroidism, unspecified; F31.9 Bipolar disorder, unspecified; E66.9 Obesity, unspecified; K21.9 Gastro-esophageal reflux disease without esophagitis; M79.7 Fibromyalgia; Z88.1 Allergy status to other antibiotic agents; Z88.8 Allergy status to other drugs, medicaments and biological substances; Z79.890 Hormone replacement therapy; Z79.899 Other long term (current) drug therapy; Z79.82 Long term (current) use of aspirin
CPT/HCPCS: J1650

== ENCOUNTER → 2020-08-21 | Outpatient (CLI) | payer MEDICARE, MEDICAID ==
[~2020-08-21] MED LIST changes: +LOVENOX150 MG/ML SQ
== END ==
LOC: COL.VAS 09:01
DX: M79.605 Pain in left leg (principal); R79.89 Other specified abnormal findings of blood chemistry

== ENCOUNTER 2021-12-25 16:49 | Emergency (ER) | payer MEDICARE, MEDICAID ==
[~2021-12-25] VITALS: Ht 157.5 cm; Wt 104.5 kg
[2021-12-25 16:57] VITALS: TEMP 98.2
[2021-12-25 17:25] LABS: BASO # 0.1 K/mm3 (0.0-0.2); BASO % 0.5 % (0.0-2.0); EOS # 0.5 K/mm3 (0.0-0.7); EOS % 2.9 % (0.0-4.0); GRAN # 13.5 K/mm3 (1.4-6.5); GRAN % 76.7 % (42.2-75.2); HEMOGLOBIN 11.4 g/dl (12.5-16.0); LYMPH # 2.1 K/mm3 (1.2-3.4); LYMPH % 11.9 % (20.0-51.0); MEAN CELL VOLUME 84 fl (80.0-100.0); MEAN CORPUSCULAR HEMOGLOBIN 28 pg (27-31); MEAN CORPUSCULAR HGB CONC 33 g/dl (33.0-37.0); MEAN PLATELET VOLUME 10.2 fl (7.4-10.4); MONO # 1.3 K/mm3 (0.1-0.6); MONO % 7.5 % (1.7-9.3); PLATELET COUNT 350 K/mm3 (130-400); RED BLOOD COUNT 4.07 M/mm3 (4.10-5.30); REDCELL DISTRIBUTION WIDTH-CV 15.5 % (11.5-14.5)
[2021-12-25 17:38] LABS: HEMATOCRIT 34.2 % (37.0-47.0)
[2021-12-25 17:49] LABS: ALANINE AMINOTRANSFERASE 20 U/L (0-55); ALBUMIN 3.2 gm/dL (3.4-4.8); ALKALINE PHOSPHATASE 57 U/L (40-150); ANION GAP 16 mmol/L (7-16); AST,SGOT 20 U/L (5-34); BILIRUBIN,TOTAL 0.3 mg/dL (0.2-1.2); BLOOD UREA NITROGEN 14 mg/dL (10-20); CALCIUM 9.2 mg/dL (8.4-10.2); CARBON DIOXIDE 26 mmol/L (23-31); CHLORIDE 96 mmol/L (98-107); CREATININE, serum 0.83 mg/dL (0.57-1.11); GLUCOSE 94 mg/dL (70-99); POTASSIUM 3.9 mmol/L (3.5-4.5); SODIUM 138 mmol/L (136-145); TOTAL PROTEIN 6.8 gm/dL (6.2-8.1)
[2021-12-25 18:00] LABS: TROPONIN-I < 0.010 ng/mL (0.00-0.033)
[2021-12-25] MEDS ORDERED: PEPCID 20MG TAB20 MG PO (20:01)
[2021-12-25 20:12] VITALS: BP 125/84; PULSE 102
== END 2021-12-25 20:12 | disposition home or self-care (01) ==
LOC: COL.ER 16:49
PROVIDERS: Emergency Medicine
DX: K20.90 Esophagitis, unspecified without bleeding (principal); R91.1 Solitary pulmonary nodule; R74.02 Elevation of levels of lactic acid dehydrogenase [LDH]; R79.1 Abnormal coagulation profile; E66.9 Obesity, unspecified; Z68.41 Body mass index [BMI] 40.0-44.9, adult
CPT/HCPCS: J2270; J2405; Q9967

== ENCOUNTER → 2023-10-22 | Outpatient (CLI) | payer MEDICARE ==
[~2023-10-22] MED LIST changes: +PEPCID 20MG TAB20 MG PO
== END ==
LOC: MC.RAD 11:24
DX: Z12.31 Encounter for screening mammogram for malignant neoplasm of breast (principal)